=== PATIENT | female | born 1985 | race Two or more races ===

== ENCOUNTER 2025-03-19 15:45 | Emergency (ER) | payer OTHER ==
[~2025-03-19] VITALS: Ht 162.6 cm; Wt 67.6 kg
[2025-03-19] MEDS ORDERED: CEFUROXIME500 MG PO (17:00)
[2025-03-19] MEDS ORDERED: PEPCID AC20 MG PO (17:00)
[2025-03-19] MEDS ORDERED: CEFTRIAXONE SODIUM 1,000 MG VIAL IM ONE (17:00)
[2025-03-19] MEDS ORDERED: TETANUS & DIPHTHERIA TOX,ADULT 0.5 ML VIAL IM ONE (17:00)
[2025-03-19] MEDS ORDERED: DIPHTH,PERTUSS(ACELL),TET VAC 0.5 ML SYRINGE IM ONE (17:16)
[2025-03-19] MEDS ORDERED: CEFTRIAXONE SODIUM 1,000 MG VIAL ONE (17:16)
[2025-03-19] MEDS ORDERED: LIDOCAINE HCL 1% 10ML VIAL ONE (17:17)
== END 2025-03-19 17:54 | disposition home or self-care (01) ==
LOC: ER 16:19
DX: S61.251A Open bite of left index finger without damage to nail, initial encounter (principal); W54.0XXA Bitten by dog, initial encounter; Y93.89 Activity, other specified; Y92.89 Other specified places as the place of occurrence of the external cause; Y99.9 Unspecified external cause status